=== PATIENT | male | born 1950 | race Caucasian/White ===

== ENCOUNTER 2022-07-14 09:40 | Inpatient (IN) | payer MEDICARE, OTHER ==
[2022-07-14] MEDS ORDERED: Acetaminophen 325 MG Tab PO PRN (11:16)
[2022-07-14] MEDS ORDERED: Polyethylene Glycol 3350 Powder 17 GM Packet PO PRN (11:16)
[2022-07-14] MEDS ORDERED: Ondansetron 4 MG Tab.DIS PO PRN (11:16)
[2022-07-14] MEDS ORDERED: Sodium Chloride 0.9% 10 ML Syringe FLUSH PRN (11:16)
[2022-07-14] MEDS ORDERED: Sodium Chloride 0.9% 1,000 ML IV ONE (11:23)
[2022-07-14] MEDS: Sodium Chloride 0.9% 1,000 ML IV SCH ×2 (12:59→21:08)
[2022-07-14] MEDS: Enoxaparin 30 MG/0.3 ML Syringe SUBCUT SCH (15:12)
[2022-07-15] MEDS: Sodium Chloride 0.9% 1,000 ML IV SCH ×3 (05:13→22:09)
[2022-07-15 06:39] LABS: BASOPHILS PERCENT AUTO 0.9 % (0.3-3.8); EOSINOPHILS ABSOLUTE AUTO 0.2 x10-3/uL (0.0-0.6); EOSINOPHILS PERCENT AUTO 3.3 % (0.1-6.8); HEMATOCRIT 31.5 % (38.3-50.1); HEMOGLOBIN 10.7 g/dL (12.9-17.7); LYMPHOCYTES PERCENT AUTO 19.3 % (15.8-45.3); MEAN CORPUSCULAR HEMOGLOBIN 30.3 pg (27.0-33.3); MEAN CORPUSCULAR VOLUME 89.1 fL (80.8-98.7); MEAN PLATELET VOLUME 10.2 fL (6.7-11.0); MONOCYTES ABSOLUTE AUTO 0.5 x10-3/uL (0.0-1.2); NEUTROPHILS ABSOLUTE AUTO 3.6 x10-3/uL (1.7-6.9); NEUTROPHILS PERCENT AUTO 67.5 % (40.3-71.8); PLATELET COUNT,PLT 191 x10(3)uL (117-477); RED BLOOD CELL COUNT 3.54 x10(6)uL (3.90-5.90); RED CELL DISTRIBUTION WIDTH 13.7 % (12.4-15.0); WHITE BLOOD CELL COUNT,WBC 5.4 x10-3/uL (3.2-10.1)
[2022-07-15 06:49] LABS: A/G RATIO 0.9; ALANINE AMINOTRANSFERASE,ALT 20 U/L (12-36); ALBUMIN 3.1 g/dL (3.2-4.6); ALKALINE PHOSPHATASE 74 IU/L (56-112); ASPARTATE AMNIOTRANSFERASE,AST 12 IU/L (5-25); BILIRUBIN TOTAL 0.4 mg/dL (0.1-1.3); BLOOD UREA NITROGEN,BUN 50 mg/dL (7-18); BUN/CREATININE RATIO 35.7 (9-20); CALCIUM 8.9 mg/dL (8.6-10.2); CARBON DIOXIDE,CO2 24 mmol/L (21-32); CHLORIDE,CL 106 mmol/L (100-110); CREATININE 1.4 mg/dL (0.70-1.30); EST CRCL DRUG DOSING (CG) 54.69 mL/min; ESTIMATED GFR 54 mL/min (>60); GLUCOSE RANDOM 125 mg/dL (80-116); MAGNESIUM 2.3 mg/dL (1.8-2.5); POTASSIUM,K 4.7 mmol/L (3.5-5.3); PROTEIN TOTAL,TP 6.5 g/dL (6.0-8.0); SODIUM,NA 136 mmol/L (135-145)
[2022-07-15] MEDS: Metoprolol Succinate 50 MG Tab.ER PO SCH (09:48)
[2022-07-15] MEDS: Rosuvastatin 10 MG Tab PO SCH (09:48)
[2022-07-15] MEDS: Enoxaparin 30 MG/0.3 ML Syringe SUBCUT SCH (15:35)
[2022-07-15] MEDS: traZODone 50 MG Tab PO PRN (23:37)
[2022-07-16] MEDS: Sodium Chloride 0.9% 1,000 ML IV SCH (06:13)
[2022-07-16 06:46] LABS: BLOOD UREA NITROGEN,BUN 23 mg/dL (7-18); BUN/CREATININE RATIO 20.9 (9-20); CALCIUM 8.9 mg/dL (8.6-10.2); CARBON DIOXIDE,CO2 24 mmol/L (21-32); CHLORIDE,CL 107 mmol/L (100-110); CREATININE 1.1 mg/dL (0.70-1.30); EST CRCL DRUG DOSING (CG) 69.61 mL/min; ESTIMATED GFR 72 mL/min (>60); GLUCOSE RANDOM 120 mg/dL (80-116); POTASSIUM,K 4.3 mmol/L (3.5-5.3); SODIUM,NA 141 mmol/L (135-145)
[2022-07-16] MEDS: Metoprolol Succinate 50 MG Tab.ER PO SCH (08:10)
[2022-07-16] MEDS: Rosuvastatin 10 MG Tab PO SCH (08:11)
[2022-07-16] MEDS: Lisinopril 2.5 MG Tab PO SCH (10:31)
[2022-07-16] MEDS: traZODone 50 MG Tab PO PRN (11:43)
[2022-07-16] MEDS: Enoxaparin 30 MG/0.3 ML Syringe SUBCUT SCH (15:44)
[2022-07-17 06:50] LABS: BLOOD UREA NITROGEN,BUN 13 mg/dL (7-18); BUN/CREATININE RATIO 11.8 (9-20); CALCIUM 9.1 mg/dL (8.6-10.2); CARBON DIOXIDE,CO2 26 mmol/L (21-32); CHLORIDE,CL 105 mmol/L (100-110); CREATININE 1.1 mg/dL (0.70-1.30); EST CRCL DRUG DOSING (CG) 69.61 mL/min; ESTIMATED GFR 72 mL/min (>60); GLUCOSE RANDOM 117 mg/dL (80-116); POTASSIUM,K 4.1 mmol/L (3.5-5.3); SODIUM,NA 139 mmol/L (135-145)
[2022-07-17] MEDS: Metoprolol Succinate 50 MG Tab.ER PO SCH (08:57)
[2022-07-17] MEDS: Rosuvastatin 10 MG Tab PO SCH (08:58)
[2022-07-17] MEDS: Lisinopril 2.5 MG Tab PO SCH (09:00)
== END 2022-07-17 13:00 | disposition home or self-care (01) | DRG 684 ==
LOC: FB.MS 10:38
PROVIDERS: ADMIT Family Medicine; ATTEND Family Medicine
DX: N17.9 Acute kidney failure, unspecified (principal); E86.0 Dehydration; I95.9 Hypotension, unspecified; E86.1 Hypovolemia; E87.5 Hyperkalemia; E11.65 Type 2 diabetes mellitus with hyperglycemia; I10 Essential (primary) hypertension; R63.4 Abnormal weight loss; Z93.3 Colostomy status; Z68.26 Body mass index [BMI] 26.0-26.9, adult; Z79.84 Long term (current) use of oral hypoglycemic drugs; Z79.899 Other long term (current) drug therapy
CPT/HCPCS: 36415; 80048; 80053; 83735; 85025; 99222; 99232; 99238; A9270-GY; J1650; J3490; J7030